=== PATIENT | male | born 2005 | race Caucasian/White ===

== ENCOUNTER 2023-11-02 11:10 | Emergency (ER) | payer OTHER, SELFPAY ==
[2023-11-02 11:12] VITALS: BP 163/92; PULSE 98; RESP 16; TEMP 36.6; O2SAT 99; BMI 33.2
--- NOTE | 2023-11-02 11:55 | EDS_ITS ---
HPI History of Present Illness Chief Complaint: Upper Extremity Injury Informant: patient Narrative Narrative: [id number] presents from his work for evaluation right shoulder injury occurring yesterday at 6 PM. He was changing a part on an excavator when he felt a pop in his shoulder. Discomfort in the posterior shoulders. Discomfort with certain movements of the shoulder. No limitations. He told his job this morning and is sent here for evaluation. He took ibuprofen at home. PFSH PFS Allergy/AdvReac Type Severity Reaction Status Date / Time No Known Allergies Allergy Verified 11/02/23 11:15 Social History Smoking Status: Never smoker ROS ROS ED Constitutional Constitutional ED: Denies chills, fever(s) or sweats Eyes Eyes: Denies change in vision ENT ENT ED: Denies dysphagia or sore throat Cardiovascular Cardiovascular: Denies chest pain, leg edema, palpitations or racing heartbeat Respiratory/Chest Respiratory/Chest: Denies cough, dyspnea or dyspnea on exertion Gastrointestinal Gastrointestinal: Denies abdominal pain, diarrhea, nausea or vomiting Genitourinary Genitourinary ED: Denies dysuria, hematuria or urinary frequency Musculoskeletal Musculoskeletal: Reports extremity pain and other Details: Right shoulder pain. ; Denies back pain or neck pain Integumentary Denies rash or wounds Neurologic Neurologic: Denies headache(s), paresthesias or weakness EXAM Physical Exam Const Vital Signs: 11/02/23 11:12 Temperature 98 F Temperature Source Temporal Pulse Rate 98 Respiratory Rate 16 Blood Pressure 163/92 H Blood Pressure Mean 115 Pulse Ox 99 Oxygen Delivery Method Room Air Positive well nourished and well developed General Appearance ED: well developed and NAD HEENT Reports moist mucous membranes normocephalic and atraumatic Eyes PERRL, EOMs intact bilaterally and conjunctivae normal General Eye ED: Yes normal appearance of both eyes Neck no lymphadenopathy and supple General: Negative for tenderness Chest Wall Chest: Negative for tenderness Resp normal respiratory effort and normal air movement Effort and Inspection: symmetric chest movement; Negative for respiratory distress Cardio regular rate, regular rhythm and no murmurs Peripheral Pulses: pulses 2+ throughout GI normal to inspection, nondistended, normoactive bowel sounds and non-tender Palpation: Negative for guarding or rebound tenderness present Back/Spine no CVA tenderness and no thoracic nor lumbar tenderness Extremity Extremity Narrative: Right upper extremity: No clavicle tenderness. No deformities. Full range of motion there is mild discomfort with external rotation against resistance. Negative empty can, negative pain with internal rotation. General Extremety ED: Yes tenderness; Negative for edema General Extremity: Negative for edema Neuro oriented x3 and no sensory deficits noted Sensorium / Orientation: awake and alert Skin no rashes or lesions noted and no wounds MDM MDM MDM Narrative Medical decision making narrative: Interventions / MDM: Differential diagnosis: Rotator cuff strain Diagnosis considered but do not suspect: N/A My EKG interpretation: N/A Imaging independently reviewed and interpreted by myself: N/A External documents reviewed: N/A Test considered but not ordered:N/A ED course: Exam concerns for rotator cuff strain posterior muscles. There is no clinical dislocation. Does not limit his range of motion or movement. He did not want any work restrictions. He will continue ibuprofen. He will follow-up with occupational health as needed. All questions were answered. Re-evaluation: stable Disposition discussed with patient/family/significant other: Patient Case discussed with consulting clinician: N/A This note was generated with Powers[employer] dictation software. It may contain incorrect words, spelling, and punctuation that were not noted in checking the note before signing. Discharge Plan Triage Chief Complaint: Upper Extremity Injury ED Provider: Edwardo Morales Dx/Rx/DC Orders Clinical Impression: Strain of rotator cuff of right shoulder Instructions: Rotator Cuff Injury Primary Care Provider: Care Physician,Danya Primary Referrals: NOT,DEFINED [Non-Staff] - Activity Restrictions/Additional Instructions: Mild rotator cuff strain. No limitations of movement. Use Tylenol or Motrin as needed. Follow-up with occupational health through your work or provided if needed. You are cleared to return back to work. Disposition Disposition: Home, Self Care Discharge Date/Time: 11/02/23 12:36
[2023-11-02 12:35] VITALS: BP 128/77; PULSE 74; RESP 16; TEMP 36.3; O2SAT 96
== END 2023-11-02 12:36 | disposition home or self-care (01) ==
LOC: ED 12:10
PROVIDERS: Emergency Provider Emergency Medicine; Visit Provider Emergency Medicine
DX: S46.011A Strain of muscle(s) and tendon(s) of the rotator cuff of right shoulder, initial encounter (principal); X58.XXXA Exposure to other specified factors, initial encounter; Y99.0 Civilian activity done for income or pay
CPT/HCPCS: 99282